=== PATIENT | male | born 1970 | race Caucasian/White ===

== ENCOUNTER 2025-01-27 07:45 | Day surgery (SDC) | payer BC, SELFPAY ==
--- NOTE | 2025-01-24 09:09 | SUR.PREOP ---
attempted to call pt to preop, no answer, voicemail left
[2025-01-24 09:29] VITALS: BMI 25.1
[2025-01-27 08:13] VITALS: BP 127/67; PULSE 60; RESP 17; TEMP 36.3; O2SAT 99
--- NOTE | 2025-01-27 08:49 | P.PNANES_ITS ---
[facility] Disclaimer: The information contained in this section may have been updated after the patient was seen, as this information can be updated by other users. Medical History Normal colonoscopy Hypertension Surgical History H/O: hemorrhoidectomy History of right elbow replacement H/O ureteroscopy Family History Other Family history of acute heart failure Family history of diabetes mellitus type II Social History Smoking Status: Never smoker alcohol intake: never substance use type: unknown current occupational status: employed Travel in the last 8 weeks: None caffeine: Yes [facility] Anesthesia Checklist Patient Identification Patient Identification: Arm Band and Verbal (Name & ) Structural Data Admitted From: Home Planned Operative Procedure/s: colonscopy Consent for Planned Operative Procedure(s) Verified: Yes Verified Documents: Surgical Consent and History and Physical NPO Status Verified Time NPO: 00:00 Additional verifications Anesthesia Reactions: No Airway Assessment Mallampati Score:: Class I Neurological Assessment Level of Consciousness: Awake, Alert and Appropriate Hx Seizures: No Numbness or tingling in extremities: No Anesthesia Plan Anesthesia Risk discussed: Yes Anesthesia Plan: Verified ASA Class: II Anesthesia Type: MAC
[2025-01-27 08:50] VITALS: O2SAT 100
--- NOTE | 2025-01-27 08:57 | EXP.HP ---
History of Present Illness *Admission Date: 01/27/25 *Reason for visit:: Personal history of colon polyps *History of present illness: Mr. Puentes is a 54-year-old gentleman who is here for follow-up surveillance colonoscopy secondary to a personal history of colon polyps. The examination is deemed medically necessary for surveillance colonoscopy. The patient has been seen, interviewed and examined prior to the procedure by both myself and the anesthesia provider. [facility] Disclaimer: The information contained in this section may have been updated after the patient was seen, as this information can be updated by other users. Medical History Normal colonoscopy Hypertension Surgical History H/O: hemorrhoidectomy History of right elbow replacement H/O ureteroscopy Family History Other Family history of acute heart failure Family history of diabetes mellitus type II Social History (Updated 01/27/25 @ 08:50 by Brittanie Brand CRNA) Smoking Status: Never smoker alcohol intake: never substance use type: unknown current occupational status: employed Travel in the last 8 weeks: None caffeine: Yes Have you lived/traveled outside [place] in past 30 days?: No Contact w/someone who lives/traveled outside [place] past 30 days?: No Exposure to someone with infectious disease in past 14 days?: No Do you have a fever (greater than 100.4 F or 38 C)?: No Have you tested positive for COVID-19: No Exposed to someone with COVID-19 in past 14 days?: No Do you have a sore throat?: No Do you have a cough?: No Do you have any weakness?: No Are you experiencing any nausea/vomitting?: No Do you have any diarrhea?: No Are you experiencing any unusual bleeding?: No Do you have any muscle aches/pain?: No Do you have any abdominal pain?: No Are you experiencing loss of taste or smell?: No Review of Systems Review of Systems Review of systems (narrative): Negative *Cardiovascular Comments: Negative *Gastrointestinal Comments: Negative *Genitourinary Comments: Negative *Musculoskeletal Comments: Negative *Neurologic Comments: Negative Meds Home Medications and Allergies Home Medications ?Medication ?Instructions ?Recorded ?Confirmed ?Type lisinopril 5 mg tablet 5 mg PO DAILY 01/24/25 01/27/25 History New Prescriptions to Start Prescriptions: Allergies Allergy/AdvReac Type Severity Reaction Status Date / Time No Known Allergies Allergy Verified 01/27/25 08:12 Exam Data for Last 24 hours Vital signs and Labs for Last 24 Hours: Temp Pulse Resp BP Pulse Ox O2 Del Method O2 Flow Rate 97.4 F L 60 17 127/67 99 Nasal Cannula 5 01/27/25 08:13 01/27/25 08:13 01/27/25 08:13 01/27/25 08:13 01/27/25 08:13 01/27/25 08:50 01/27/25 08:50 I & O for Last 24 hours: Intake & Output 01/24/25 01/25/25 01/26/25 01/27/25 23:59 23:59 23:59 23:59 Weight 170 lb *Routine HEENT Exam Head: Present normocephalic Eye: Present EOMI and PERRL ENT: Present mucous membranes moist *Routine Neck Exam Neck: Present supple *Routine Respiratory Exam Respiratory: Present CTA bilaterally *Routine Cardiovascular Exam Cardiovascular: Present RRR *Routine Abdominal Exam Abdominal: Present soft and normoactive bowel sounds; Absent tenderness *Routine Rectal Exam Rectal:: deferred *Routine Genitalia Exam Genitalia:: deferred *Routine Extremities Exam Extremities: Absent cyanosis, clubbing or edema *Routine Skin Exam Skin: Present warm; Absent rash *Routine Neurological Exam Neurological: Present alert and oriented X3 Assessment and Plan *Assessment and plan (1) Personal history of colon polyps, unspecified: Status: Acute Category: Medical Code(s): Z86.0100 - Personal history of colon polyps, unspecified Plan A/P: 1. Personal history of colon polyps (unspecified) with last colonoscopy in 2019 is the preprocedural diagnosis. The patient will be anesthetized/sedated using MAC sedation. The patient has been seen and examined. Cardiac and lung assessment prior to the examination is stable. Proceed with planned surveillance colonoscopy.
--- NOTE | 2025-01-27 08:59 | P.PCN_ITS ---
[facility] Procedure Note Date: 01/27/25 Time: 09:16 Procedure Note:: Colonoscopy Procedure Report: Colonoscopy with cold snare polypectomy Endoscopist: Cristobal Quinn II, MD Referring physician: Ronnie Suarez MD, [address] [place] [id number] Date of Procedure: January 27, 2025 Equipment: Olympus 190 variable stiffness pediatric colonoscope Sedation: MAC sedation Indication: Mr. Puentes is a 54-year-old gentleman who is here for follow-up surveillance colonoscopy secondary to a personal history of colon polyps. His last colonoscopy was in 2019 and he had a couple of benign polyps removed at that time. This is his third colonoscopy. He reports no abdominal pain, weight loss, change in his bowel habits or rectal bleeding. He reports no family history of colon cancer. 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 Procedure: Prior to the procedure, a history and physical exam was performed, and patient's medications and allergies were reviewed. The risks, benefits and alternatives of the sedation and procedure were discussed with the patient. All questions were answered and informed consent was obtained. The patient was brought to the procedure room. Patient identification and proposed procedure were verified by the physician and the nurse. The patient was placed in a left lateral decubitus position and the scope was passed under direct vision. Throughout the procedure, the patient's blood pressure, pulse, and oxygen saturations were monitored continuously. The colonoscopy was accomplished without difficulty. The patient tolerated the procedure well. Findings: On digital rectal examination there was normal rectal tone. There were no external hemorrhoids. The prostate was 2+, smooth, soft, symmetric without nodules. The colonoscope was introduced through the anal canal to the rectum and advanced to the cecum. The ileocecal valve and appendiceal orifice were identified. The scope was advanced a short distance into the ileum which appeared grossly normal. The scope was then withdrawn into the colon. There was a single diminutive 3 mm transverse polyp that was removed via cold snare polypectomy. The remaining cecum, ascending, transverse, descending, sigmoid and rectum were grossly normal. There were no other mucosal abnormalities identified. Upon retroflexion within the rectum there were grade 2 internal hemorrhoids. The preparation was excellent throughout with [place] Preparation Score of 9. The cecal time was 14 minutes. Impression: 1. Diminutive transverse colon polyp (3 mm) 2. Grade 2 internal hemorrhoids Plan: I will follow-up the polyp histology and recommend repeat surveillance colonoscopy again in 7 to 10 years based upon the pathology.
[2025-01-27 09:22] VITALS: BP 107/64; PULSE 69; RESP 16; TEMP 36.4; O2SAT 97
[2025-01-27 09:32] VITALS: BP 109/62; PULSE 56; RESP 16; O2SAT 100
[2025-01-27 09:42] VITALS: BP 108/70; PULSE 65; RESP 16; O2SAT 100
[2025-01-27 09:52] VITALS: BP 123/83; PULSE 67; RESP 16; O2SAT 100
== END 2025-01-27 09:57 | disposition home or self-care (01) ==
PROVIDERS: PCP Internal Medicine; Visit Provider Internal Medicine Gastroenterology
PROC: 0DJD8ZZ Inspection of Lower Intestinal Tract, Via Natural or Artificial Opening Endoscopic (ICD-10-PCS; CPT 45378; principal; 2025-01-27 09:00)
DX: K63.5 Polyp of colon (principal); K64.1 Second degree hemorrhoids; Z86.0100 Personal history of colon polyps, unspecified; K58.0 Irritable bowel syndrome with diarrhea
CPT/HCPCS: 45385